=== PATIENT | female | born 1970 | race Caucasian/White ===

== ENCOUNTER 2018-06-01 07:47 | Day surgery (SDC) | payer OTHER ==
[~2018-06-01 07:47] MED LIST: CEFAZOLIN 1 GM INJ; CEFAZOLIN 2 GM/50 ML (PMX) 50 ML IVPB
[2018-06-01] MEDS: SOD CHLORIDE 0.9% 1,000 ML IV (11:45)
[2018-06-01] MEDS ORDERED: PROPOFOL 20 ML (13:47)
[2018-06-01] MEDS ORDERED: LIDOCAINE 2% (SDV) 5 ML INJ (13:47)
[2018-06-01] MEDS ORDERED: MIDAZOLAM 1 MG/ML 2 ML INJ (13:48)
[2018-06-01] MEDS ORDERED: FENTAnyl 50 MCG/ML VIAL (13:48)
[2018-06-01] MEDS ORDERED: DEXAMETHASONE 4 MG/ML 1 ML INJ (13:56)
[2018-06-01] MEDS ORDERED: FAMOTIDINE 20 MG INJ (13:56)
[2018-06-01] MEDS ORDERED: ONDANSETRON 4 MG INJ (13:56)
[2018-06-01] MEDS ORDERED: ACETAMINOPHEN 1000MG/100ML IV 100 ML (14:10)
[2018-06-01] MEDS: BUPIVACAINE 0.25% (MPF) 30 ML INJ (14:27)
[2018-06-01] MEDS ORDERED: LABETALOL HCL 20MG INJ IV (15:00)
[2018-06-01] MEDS ORDERED: HYDROmorphONE 1 MG/5 ML IV SYRINGE IV ×3 (15:00)
[2018-06-01] MEDS ORDERED: OXYCODONE/ACETAMINOPHEN (5/325) TAB PO (15:00)
[2018-06-01] MEDS ORDERED: PROCHLORPERAZINE 10 MG INJ IV (15:00)
[2018-06-01] MEDS ORDERED: DIPHENHYDRAMINE 50 MG INJ IV (15:00)
[2018-06-01] MEDS ORDERED: hydrALAzine 20 MG INJ IV (15:00)
[2018-06-01] MEDS: FENTAnyl 50 MCG/ML VIAL IV (15:01)
[2018-06-01] MEDS: ONDANSETRON 4 MG INJ IV (15:04)
[2018-06-01] MEDS: MEPERIDINE 25 MG INJ IV (15:04)
[2018-06-01] MEDS: HYDROCODONE/APAP (5/325) TAB PO (16:13)
== END 2018-06-01 16:47 | disposition home or self-care (01) ==
LOC: SDS 07:47
DX: D24.2 Benign neoplasm of left breast (principal); N60.92 Unspecified benign mammary dysplasia of left breast
CPT/HCPCS: 19301; 84703; 88307

== ENCOUNTER 2019-03-22 05:23 | Day surgery (SDC) | payer OTHER ==
[2019-03-22] MEDS ORDERED: BUPIVACAINE 0.25% (MPF) 30 ML INJ (06:58)
[2019-03-22] MEDS ORDERED: POLYMYXIN/BACITRACIN 1L IRRIG (06:58)
[2019-03-22] MEDS ORDERED: CEFAZOLIN 2 GM/50 ML (PMX) 50 ML IVPB (07:00)
[2019-03-22] MEDS: SOD CHLORIDE 0.9% 1,000 ML IV (07:22)
[2019-03-22 07:23] LABS: PROTIME 12.3 Sec (11.9-14.9)
[2019-03-22] MEDS ORDERED: LABETALOL HCL 20MG INJ IV (07:30)
[2019-03-22] MEDS ORDERED: METOCLOPRAMIDE 10 MG INJ IV (07:30)
[2019-03-22] MEDS ORDERED: FENTAnyl 50 MCG/ML VIAL IV ×2 (07:30)
[2019-03-22] MEDS ORDERED: OXYCODONE/ACETAMINOPHEN (5/325) TAB PO (07:30)
[2019-03-22] MEDS ORDERED: EPHEDrine 25 MG/5 ML SYG IV (07:30)
[2019-03-22] MEDS ORDERED: HYDROmorphONE 1 MG/5 ML IV SYRINGE IV ×2 (07:30)
[2019-03-22] MEDS ORDERED: DIPHENHYDRAMINE 50 MG INJ IV (07:30)
[2019-03-22] MEDS ORDERED: ROPIVACAINE 0.2% 20 ML VIAL (07:40)
[2019-03-22] MEDS ORDERED: PROPOFOL 20 ML (07:40)
[2019-03-22] MEDS ORDERED: CEFAZOLIN 1 GM INJ (07:40)
[2019-03-22] MEDS ORDERED: FENTAnyl 50 MCG/ML VIAL (07:40)
[2019-03-22] MEDS ORDERED: MIDAZOLAM 1 MG/ML 2 ML INJ (07:40)
[2019-03-22] MEDS ORDERED: METOCLOPRAMIDE 10 MG INJ (08:16)
[2019-03-22] MEDS ORDERED: KETOROLAC 30 MG INJ (08:16)
[2019-03-22] MEDS ORDERED: SUGAMMADEX SODIUM 200 MG/2 ML VIAL IV (08:16)
[2019-03-22] MEDS ORDERED: DEXAMETHASONE 4 MG/ML 5 ML INJ (08:16)
[2019-03-22] MEDS ORDERED: ONDANSETRON 4 MG INJ (08:16)
[2019-03-22] MEDS: ONDANSETRON 4 MG INJ IV (08:48)
[2019-03-22] MEDS: MEPERIDINE 25 MG INJ IV (08:48)
[2019-03-22] MEDS: HYDROCODONE/APAP (5/325) TAB PO (09:28)
[2019-03-22] MEDS ORDERED: HYDROmorphONE 1 MG/ML SYG IV (10:00)
[2019-03-22] MEDS: HYDROmorphONE 1 MG/ML SYG IV (10:02)
== END 2019-03-22 10:38 | disposition home or self-care (01) ==
LOC: SDS 05:23
DX: K40.30 Unilateral inguinal hernia, with obstruction, without gangrene, not specified as recurrent (principal); Z90.710 Acquired absence of both cervix and uterus
CPT/HCPCS: 49507; 71045; 85610; 85730; 93005

== ENCOUNTER 2019-03-26 07:36 | Inpatient (IN) | payer OTHER ==
[2019-03-26] MEDS: HYDROmorphONE 1 MG/ML SYG IV ×4 (08:13→23:16)
[2019-03-26] MEDS: ONDANSETRON 4 MG INJ IV ×2 (08:14→08:51)
[2019-03-26 08:33] LABS: ABNORMAL IP MESSAGE 1; HEMATOCRIT 45.9 % (37.0-47.0); HEMOGLOBIN 15.4 g/dl (12.0-16.0); MEAN CORPUSCULAR HGB CONC 33.6 g/dl (32.0-37.0); MEAN CORPUSCULAR VOLUME 89.5 fl (82.0-101.0); MEAN PLATELET VOLUME 9.4 fl (7.4-10.4); PLATELET COUNT 263 10^3/UL (140-415); RED BLOOD COUNT 5.13 10^6/ul (4.20-5.40); RED CELL DISTRIBUTION WIDTH 12.3 % (11.5-14.5)
[2019-03-26 08:33] LABS: WHITE BLOOD COUNT 11.2 10^3/ul (4.8-10.8)
[2019-03-26 08:38] LABS: POSITIVE DIFF @See below
[2019-03-26 08:39] LABS: ADD MAN DIFF? YES
[2019-03-26 08:53] LABS: INR 0.93; PROTIME 12.6 Sec (11.9-14.9)
[2019-03-26 08:54] LABS: ALANINE AMINOTRANSFERASE 32 IU/L (13-69); ALBUMIN 4.1 g/dl (3.3-4.9); ALBUMIN/GLOBULIN RATIO 1.41; ALKALINE PHOSPHATASE 86 IU/L (42-121); AMYLASE 49 U/L (11-123); ANION GAP 10 (5-13); ASPARTATE AMINO TRANSFERASE 18 IU/L (15-46); BILIRUBIN,INDIRECT 0.8 mg/dl (0-1.1); BILIRUBIN,TOTAL 0.8 mg/dl (0.2-1.3); BLOOD UREA NITROGEN 16 mg/dl (7-20); CALCIUM 9.8 mg/dl (8.4-10.2); CARBON DIOXIDE 23 mmol/L (21-31); CHLORIDE 104 mmol/L (97-110); Estimated GFR > 60 mL/min (>60); GLUCOSE 121 mg/dl (70-220); LIPASE 31 U/L (23-300); PARTIAL THROMBOPLASTIN TIME 25.6 Sec (23.0-35.0); POTASSIUM 4.6 mmol/L (3.5-5.1); SODIUM 137 mmol/L (135-144)
[2019-03-26 09:20] LABS: ANISOCYTOSIS 1+ (0-0); BAND NEUTROPHILS #M 0.1 10^3/ul (0.0-0.6); BAND NEUTROPHILS % (M) 1 % (0-4); EOSINOPHILS % (M) 1 % (0-7); LYMPHOCYTES #M 2.8 10^3/ul (0.8-2.9); LYMPHOCYTES % (M) 25 % (15-51); MICROCYTOSIS 1+ (0-0); MONOCYTE #M 0.4 10^3/ul (0.3-0.9); MONOCYTES % (M) 4 % (0-11); MYELOCYTES #M 0.3 10^3/ul (0.0-0.0); MYELOCYTES % (M) 3 % (0-0); PLATELET ESTIMATE NORMAL; REACTIVE LYMPHOCYTES #M 0.3 10^3/ul (0.0-0.0); REACTIVE LYMPHOCYTES% (M) 3 % (0-0); SEG NEUT #M 7.1 10^3/ul (1.6-7.5); SEGMENTED NEUTROPHILS (M) % 63 % (39-77); SMUDGE%M 3 % (0-0)
[2019-03-26] MEDS: IOHEXOL 300MG/ML 150 ML BTL (09:25)
[2019-03-26] MEDS: SOD CHLORIDE 0.9% 100 ML (09:28)
[2019-03-26] MEDS: METHYLNALTREXONE 12 MG/0.6 ML VIAL SC ×2 (12:00→15:54)
[2019-03-26] MEDS ORDERED: ONDANSETRON 4 MG INJ IV (12:30)
[2019-03-26] MEDS ORDERED: ACETAMINOPHEN 325 MG TAB PO ×2 (12:30→15:30)
[2019-03-26] MEDS: PIPER-TAZO 3.375 GM IV (PMX) 100 ML IVPB (12:34)
[2019-03-26] MEDS: NA PHOSPHATE/BIPHOS 133 ML ENEMA PR (12:34)
[2019-03-26] MEDS: HYDROmorphONE 0.5 MG/0.5 ML SYG IV (13:06)
[2019-03-26] MEDS: morphine 2 MG INJ IV (15:53)
[2019-03-26] MEDS: HYDROCODONE/APAP (5/325) TAB PO (16:59)
[2019-03-27] MEDS: HYDROmorphONE 1 MG/ML SYG IV ×2 (04:56→09:26)
[2019-03-27 06:15] LABS: ADD MAN DIFF? NO
[2019-03-27 06:20] LABS: WHITE BLOOD COUNT 15.6 10^3/ul (4.8-10.8)
[2019-03-27 06:20] LABS: BASOPHIL # 0.1 10^3/ul (0.0-0.1); BASOPHILS % 0.6 % (0.0-2.0); EOSINOPHILS # 0.1 10^3/ul (0.0-0.5); EOSINOPHILS % 0.6 % (0.0-7.0); HEMATOCRIT 42.4 % (37.0-47.0); HEMOGLOBIN 14.1 g/dl (12.0-16.0); LYMPHOCYTES # 2.4 10^3/ul (0.8-2.9); LYMPHOCYTES % 15.6 % (15.0-51.0); MEAN CORPUSCULAR HEMOGLOBIN 30.3 pg (29.0-33.0); MEAN CORPUSCULAR HGB CONC 33.3 g/dl (32.0-37.0); MEAN PLATELET VOLUME 9.4 fl (7.4-10.4); MONOCYTE # 0.9 10^3/ul (0.3-0.9); NEUTROPHIL # 11.6 10^3/ul (1.6-7.5); NEUTROPHILS % 74.1 % (39.0-77.0); PLATELET COUNT 239 10^3/UL (140-415); RED BLOOD COUNT 4.66 10^6/ul (4.20-5.40); RED CELL DISTRIBUTION WIDTH 12.4 % (11.5-14.5)
[2019-03-27 06:51] LABS: ANION GAP 6 (5-13); BLOOD UREA NITROGEN 12 mg/dl (7-20); CALCIUM 8.9 mg/dl (8.4-10.2); CARBON DIOXIDE 28 mmol/L (21-31); CHLORIDE 105 mmol/L (97-110); CREATININE 0.82 mg/dl (0.44-1.00); Estimated GFR > 60 mL/min (>60); GLUCOSE 101 mg/dl (70-220); POTASSIUM 4.3 mmol/L (3.5-5.1); SODIUM 139 mmol/L (135-144)
[2019-03-27] MEDS: POLYETHYLENE GLYCOL 17 GM PACKET PO ×2 (09:26→19:57)
[2019-03-27] MEDS ORDERED: BISACODYL 10 MG SUPP PR (13:30)
[2019-03-27] MEDS: METHYLNALTREXONE 12 MG/0.6 ML VIAL SC (13:54)
[2019-03-27] MEDS: KETOROLAC 30 MG INJ IV ×2 (13:54→19:47)
[2019-03-27] MEDS ORDERED: FAMOTIDINE 20 MG INJ IV (14:00)
[2019-03-27] MEDS ORDERED: LACTULOSE 30ML CUP PO (18:00)
[2019-03-27] MEDS: PIPER-TAZO 3.375 GM IV (PMX) 100 ML IVPB (18:47)
[2019-03-27] MEDS: metroNIDAZOLE 500 MG/NS (PMX) 100 ML IVPB (19:53)
[2019-03-27] MEDS: MINERAL OIL 133 ML ENEMA PR (19:57)
[2019-03-28] MEDS: KETOROLAC 30 MG INJ IV ×4 (01:25→19:52)
[2019-03-28] MEDS: PIPER-TAZO 3.375 GM IV (PMX) 100 ML IVPB ×3 (05:53→23:14)
[2019-03-28] MEDS: PANTOPRAZOLE (EC) 40 MG TAB PO (05:54)
[2019-03-28 06:23] LABS: ADD MAN DIFF? NO
[2019-03-28] MEDS: metroNIDAZOLE 500 MG/NS (PMX) 100 ML IVPB ×3 (06:29→21:28)
[2019-03-28 06:35] LABS: BASOPHIL # 0.1 10^3/ul (0.0-0.1); BASOPHILS % 0.6 % (0.0-2.0); EOSINOPHILS # 0.1 10^3/ul (0.0-0.5); EOSINOPHILS % 0.7 % (0.0-7.0); HEMATOCRIT 40.9 % (37.0-47.0); HEMOGLOBIN 13.5 g/dl (12.0-16.0); LYMPHOCYTES # 2.3 10^3/ul (0.8-2.9); LYMPHOCYTES % 15.4 % (15.0-51.0); MEAN CORPUSCULAR HEMOGLOBIN 29.9 pg (29.0-33.0); MEAN CORPUSCULAR VOLUME 90.7 fl (82.0-101.0); MEAN PLATELET VOLUME 9.5 fl (7.4-10.4); MONOCYTE # 0.7 10^3/ul (0.3-0.9); MONOCYTES % 4.9 % (0.0-11.0); NEUTROPHIL # 11.3 10^3/ul (1.6-7.5); NEUTROPHILS % 75.2 % (39.0-77.0); PLATELET COUNT 211 10^3/UL (140-415); RED BLOOD COUNT 4.51 10^6/ul (4.20-5.40); RED CELL DISTRIBUTION WIDTH 12.4 % (11.5-14.5)
[2019-03-28] MEDS: POLYETHYLENE GLYCOL 17 GM PACKET PO ×2 (08:11→21:28)
[2019-03-28] MEDS: METHYLNALTREXONE 12 MG/0.6 ML VIAL SC (08:12)
[2019-03-29] MEDS: KETOROLAC 30 MG INJ IV ×4 (01:07→19:28)
[2019-03-29] MEDS: PIPER-TAZO 3.375 GM IV (PMX) 100 ML IVPB ×3 (05:33→22:54)
[2019-03-29] MEDS: PANTOPRAZOLE (EC) 40 MG TAB PO (06:00)
[2019-03-29] MEDS: metroNIDAZOLE 500 MG/NS (PMX) 100 ML IVPB ×2 (06:18→14:19)
[2019-03-29 07:16] LABS: ADD MAN DIFF? NO
[2019-03-29 07:19] LABS: BASOPHIL # 0.1 10^3/ul (0.0-0.1); BASOPHILS % 0.7 % (0.0-2.0); EOSINOPHILS # 0.2 10^3/ul (0.0-0.5); EOSINOPHILS % 1.7 % (0.0-7.0); HEMATOCRIT 39.9 % (37.0-47.0); LYMPHOCYTES # 1.7 10^3/ul (0.8-2.9); LYMPHOCYTES % 14.2 % (15.0-51.0); MEAN CORPUSCULAR HGB CONC 32.6 g/dl (32.0-37.0); MEAN CORPUSCULAR VOLUME 91.9 fl (82.0-101.0); MEAN PLATELET VOLUME 9.7 fl (7.4-10.4); MONOCYTE # 0.6 10^3/ul (0.3-0.9); MONOCYTES % 5.1 % (0.0-11.0); NEUTROPHILS % 74.4 % (39.0-77.0); PLATELET COUNT 200 10^3/UL (140-415); RED BLOOD COUNT 4.34 10^6/ul (4.20-5.40); RED CELL DISTRIBUTION WIDTH 12.3 % (11.5-14.5)
[2019-03-29 07:19] LABS: WHITE BLOOD COUNT 12.1 10^3/ul (4.8-10.8)
[2019-03-29 07:50] LABS: ANION GAP 5 (5-13); BLOOD UREA NITROGEN 17 mg/dl (7-20); CALCIUM 8.4 mg/dl (8.4-10.2); CARBON DIOXIDE 24 mmol/L (21-31); CHLORIDE 110 mmol/L (97-110); CREATININE 0.87 mg/dl (0.44-1.00); Estimated GFR > 60 mL/min (>60); GLUCOSE 85 mg/dl (70-220); POTASSIUM 4.2 mmol/L (3.5-5.1); SODIUM 139 mmol/L (135-144)
[2019-03-29] MEDS: METHYLNALTREXONE 12 MG/0.6 ML VIAL SC (09:00)
[2019-03-29] MEDS: POLYETHYLENE GLYCOL 17 GM PACKET PO ×2 (09:00→21:38)
[2019-03-29] MEDS: LIDOCAINE 1% (MDV) 20 ML INJ (14:07)
[2019-03-29] MEDS: 1/2 NS + KCL 20 MEQ 1,000 ML IV (14:19)
[2019-03-29] MEDS: ONDANSETRON 4 MG INJ IV ×2 (15:05→21:38)
[2019-03-29] MEDS: HYDROCODONE/APAP (5/325) TAB PO ×2 (17:12→23:04)
[2019-03-30] MEDS: KETOROLAC 30 MG INJ IV ×2 (01:30→06:37)
[2019-03-30 05:37] LABS: ADD MAN DIFF? NO
[2019-03-30 05:43] LABS: BASOPHIL # 0.1 10^3/ul (0.0-0.1); BASOPHILS % 0.7 % (0.0-2.0); EOSINOPHILS # 0.2 10^3/ul (0.0-0.5); EOSINOPHILS % 1.9 % (0.0-7.0); HEMATOCRIT 42.5 % (37.0-47.0); HEMOGLOBIN 14.1 g/dl (12.0-16.0); LYMPHOCYTES # 1.5 10^3/ul (0.8-2.9); LYMPHOCYTES % 13.7 % (15.0-51.0); MEAN CORPUSCULAR HEMOGLOBIN 30.1 pg (29.0-33.0); MEAN CORPUSCULAR HGB CONC 33.2 g/dl (32.0-37.0); MEAN CORPUSCULAR VOLUME 90.6 fl (82.0-101.0); MEAN PLATELET VOLUME 9.6 fl (7.4-10.4); MONOCYTE # 0.5 10^3/ul (0.3-0.9); MONOCYTES % 4.8 % (0.0-11.0); NEUTROPHIL # 8.3 10^3/ul (1.6-7.5); NEUTROPHILS % 74.9 % (39.0-77.0); PLATELET COUNT 226 10^3/UL (140-415); RED BLOOD COUNT 4.69 10^6/ul (4.20-5.40); RED CELL DISTRIBUTION WIDTH 12.4 % (11.5-14.5)
[2019-03-30 05:43] LABS: WHITE BLOOD COUNT 11.1 10^3/ul (4.8-10.8)
[2019-03-30] MEDS: PANTOPRAZOLE (EC) 40 MG TAB PO (06:37)
[2019-03-30] MEDS: PIPER-TAZO 3.375 GM IV (PMX) 100 ML IVPB ×2 (06:37→13:49)
[2019-03-30 06:38] LABS: ANION GAP 8 (5-13); BLOOD UREA NITROGEN 11 mg/dl (7-20); CALCIUM 8.5 mg/dl (8.4-10.2); CARBON DIOXIDE 25 mmol/L (21-31); CHLORIDE 107 mmol/L (97-110); CREATININE 0.83 mg/dl (0.44-1.00); Estimated GFR > 60 mL/min (>60); GLUCOSE 152 mg/dl (70-220); POTASSIUM 3.9 mmol/L (3.5-5.1); SODIUM 140 mmol/L (135-144)
[2019-03-30] MEDS: POLYETHYLENE GLYCOL 17 GM PACKET PO ×2 (08:35→21:30)
[2019-03-30] MEDS: METHYLNALTREXONE 12 MG/0.6 ML VIAL SC (08:35)
[2019-03-30] MEDS: HYDROCODONE/APAP (5/325) TAB PO ×2 (13:48→21:30)
[2019-03-30] MEDS: AMOXICILLIN/CLAV 875 MG TAB PO (21:30)
[2019-03-31] MEDS: PANTOPRAZOLE (EC) 40 MG TAB PO (06:17)
[2019-03-31] MEDS: AMOXICILLIN/CLAV 875 MG TAB PO ×2 (08:45→21:03)
[2019-03-31] MEDS: HYDROCODONE/APAP (5/325) TAB PO ×2 (08:45→21:03)
[2019-03-31] MEDS: POLYETHYLENE GLYCOL 17 GM PACKET PO ×2 (08:45→21:03)
[2019-03-31] MEDS: METHYLNALTREXONE 12 MG/0.6 ML VIAL SC (08:47)
[2019-04-01] MEDS: PANTOPRAZOLE (EC) 40 MG TAB PO ×2 (06:03→08:12)
[2019-04-01] MEDS: POLYETHYLENE GLYCOL 17 GM PACKET PO ×2 (08:52→21:00)
[2019-04-01] MEDS: HYDROCODONE/APAP (5/325) TAB PO ×2 (08:53→21:20)
[2019-04-01] MEDS: AMOXICILLIN/CLAV 875 MG TAB PO ×2 (08:53→21:20)
[2019-04-01] MEDS: METHYLNALTREXONE 12 MG/0.6 ML VIAL SC (08:54)
[2019-04-02] MEDS: PANTOPRAZOLE (EC) 40 MG TAB PO (06:46)
[2019-04-02] MEDS: METHYLNALTREXONE 12 MG/0.6 ML VIAL SC (08:43)
[2019-04-02] MEDS: POLYETHYLENE GLYCOL 17 GM PACKET PO (08:43)
[2019-04-02] MEDS: AMOXICILLIN/CLAV 875 MG TAB PO (08:43)
[2019-04-02] MEDS: HYDROCODONE/APAP (5/325) TAB PO (08:53)
== END 2019-04-02 18:57 | disposition home or self-care (01) | DRG 909 ==
LOC: PP2 03-29 19:40 → E/R 07:36 → PP2 12:15
PROC: 0Y953ZX Drainage of Right Inguinal Region, Percutaneous Approach, Diagnostic (ICD-10-PCS; principal; 2019-03-29)
DX: M96.841 Postprocedural hematoma of a musculoskeletal structure following other procedure (principal); M96.843 Postprocedural seroma of a musculoskeletal structure following other procedure; Z87.19 Personal history of other diseases of the digestive system; K59.00 Constipation, unspecified; I80.8 Phlebitis and thrombophlebitis of other sites; R93.3 Abnormal findings on diagnostic imaging of other parts of digestive tract; Y83.8 Other surgical procedures as the cause of abnormal reaction of the patient, or of later complication, without mention of misadventure at the time of the procedure
CPT/HCPCS: 36415; 74177; 76536; 80048; 80053; 82150; 83690; 85025; 85610; 85730; 87040-91; 87070; 87075; 93971; 96372; 96374; 96375; 96376; 99285-25; G0378